=== PATIENT | female | born 1995 | race African-American/Black ===

== ENCOUNTER 2018-01-15 10:40 | Emergency (ER) | payer MEDICAID ==
[~2018-01-15] VITALS: Ht 167.6 cm; Wt 71.0 kg
[2018-01-15 10:55] VITALS: BP 125/90
== END 2018-01-15 11:40 | disposition home or self-care (01) ==
LOC: ER 10:49
DX: R22.0 Localized swelling, mass and lump, head (principal)
CPT/HCPCS: 99281